=== PATIENT | male | born 1945 | race Caucasian/White ===

== ENCOUNTER → 2017-03-15 | Outpatient (CLI) | payer MEDICARE, OTHER | LOC: OPSV 07:09 → CT 11:00 | DX: D3A.092 Benign carcinoid tumor of the stomach (principal); K74.69 Other cirrhosis of liver; D61.818 Other pancytopenia; R61 Generalized hyperhidrosis; R93.8 Abnormal findings on diagnostic imaging of other specified body structures; R50.9 Fever, unspecified; R06.02 Shortness of breath; R63.4 Abnormal weight loss; R42 Dizziness and giddiness; K74.60 Unspecified cirrhosis of liver; R16.1 Splenomegaly, not elsewhere classified; Z90.49 Acquired absence of other specified parts of digestive tract | CPT/HCPCS: 36415; 74160; 82565; 84520; 96360; 96361; J7030; J7050; Q9962 ==

== ENCOUNTER 2021-07-13 16:31 | Emergency (ER) | payer MEDICARE, OTHER ==
[~2021-07-13] VITALS: Ht 167.6 cm; Wt 104.3 kg
[~2021-07-13 16:31] MED LIST: NORCO 5-325 TA1 EACH PO
[2021-07-13 17:41] LABS: HEMOGLOBIN 8.5 gm/dl (14.0-17.5); RED BLOOD COUNT 3.15 M/UL (4.20-5.50); WHITE BLOOD COUNT 2.4 K/UL (4.5-11.0)
[2021-07-13 18:05] LABS: BUN/CREATININE RATIO 18 (0-10)
== END 2021-07-13 23:00 | disposition home or self-care (01) ==
LOC: ER1 16:31
PROVIDERS: Physician Assistant
DX: Z23 Encounter for immunization (principal); U07.1 COVID-19; E11.9 Type 2 diabetes mellitus without complications; I10 Essential (primary) hypertension; J44.9 Chronic obstructive pulmonary disease, unspecified; E03.9 Hypothyroidism, unspecified
CPT/HCPCS: 71045; 80053; 82550; 82553; 83874; 84484; 85025; 93005; 99285; M0243; U0002

== ENCOUNTER 2022-01-15 13:14 | Emergency (ER) | payer MEDICARE, OTHER | END 2022-01-15 17:35 | disposition home or self-care (01) | LOC: ER1 13:14 | DX: S51.012A Laceration without foreign body of left elbow, initial encounter (principal); S05.12XA Contusion of eyeball and orbital tissues, left eye, initial encounter; S00.83XA Contusion of other part of head, initial encounter; E11.9 Type 2 diabetes mellitus without complications; Z23 Encounter for immunization; I10 Essential (primary) hypertension; V49.9XXA Car occupant (driver) (passenger) injured in unspecified traffic accident, initial encounter | CPT/HCPCS: 70450; 70486; 71260; 72125; 73030; 73080; 73502; 90471; 90715; 99284; Q9967 ==

== ENCOUNTER 2022-02-14 15:47 | Emergency (ER) | payer MEDICARE, OTHER ==
[2022-02-14 16:52] LABS: HEMOGLOBIN 7.7 gm/dl (14.0-17.5); RED BLOOD COUNT 2.33 M/UL (4.20-5.50); WHITE BLOOD COUNT 2.7 K/UL (4.5-11.0)
[2022-02-14 17:18] LABS: BUN/CREATININE RATIO 19 (0-10)
[2022-02-15] MEDS ORDERED: LACTULOSE20 GM/30 M PO (00:44)
== END 2022-02-15 00:50 | disposition home or self-care (01) ==
LOC: ER1 15:47
PROVIDERS: Emergency Medicine; Physician Assistant
DX: G93.40 Encephalopathy, unspecified (principal); K74.60 Unspecified cirrhosis of liver; E72.20 Disorder of urea cycle metabolism, unspecified; Z20.822 Contact with and (suspected) exposure to COVID-19; E10.9 Type 1 diabetes mellitus without complications; I10 Essential (primary) hypertension
CPT/HCPCS: 70450; 71045; 80053; 80307; 82140; 82550; 82553; 83690; 83735; 84484; 85025; 85610; 85730; 93005; 99285; G0480; U0002

== ENCOUNTER → 2022-03-12 | Outpatient (CLI) | payer MEDICARE, OTHER ==
[~2022-03-12] MED LIST changes: +LACTULOSE20 GM/30 M PO
== END ==
LOC: KOH-I 02-27 08:30
DX: K74.60 Unspecified cirrhosis of liver (principal); I73.9 Peripheral vascular disease, unspecified; D64.9 Anemia, unspecified; E11.40 Type 2 diabetes mellitus with diabetic neuropathy, unspecified; E11.649 Type 2 diabetes mellitus with hypoglycemia without coma; G31.9 Degenerative disease of nervous system, unspecified
CPT/HCPCS: 70450